=== PATIENT | male | born 1955 | race Caucasian/White ===

== ENCOUNTER → 2017-06-13 | Outpatient (CLI) | payer BC ==
--- NOTE | 2017-06-13 09:35 | RAD ---
Scrotal ultrasound History: Right scrotal pain. Comparison: None. Technique: Grayscale, color Doppler, and spectral Doppler imaging was performed of the scrotum and contents. Findings: Right testicle measures 2.3 x 3.3 x 4.1 cm. Right testicle is homogeneous. Right epididymis demonstrates small cyst versus spermatocele measuring 4 mm. Small complicated right hydrocele is seen. Left testicle measures 2.0 x 2.8 x 4.0 cm. Left testicle is homogeneous. Left epididymis demonstrates 3 mm cyst versus spermatocele. Both testicles demonstrate normal vascular flow upon Doppler interrogation and are without evidence of torsion. Impression: 1. No evidence of testicular mass or torsion. 2. Small bilateral epididymal cysts versus spermatoceles. 3. Small complicated right hydrocele. Electronically signed by: Troy Mccartney MD (06/13/2017 9:32 AM) [place] [id number]
--- NOTE | 2017-06-13 09:59 | RAD ---
PQRS Compliance Statement: One or more of the following individualized dose reduction techniques were utilized for this examination: 1. Automated exposure control 2. Adjustment of the mA and/or kV according to patient size 3. Use of iterative reconstruction technique CT chest without contrast June 13, 2017 INDICATION: Lung nodule. COMPARISON: CT abdomen/pelvis June 06, 2017. TECHNIQUE: Multiple axial CT images of the chest were obtained with intravenous contrast. Coronal and sagittal reformats provided. FINDINGS: The thyroid gland is normal in appearance. Lymph nodes within the axilla demonstrate normal fatty mimi. No morphologically abnormal lymph nodes are visualized in the axillary regions. There is a prevascular lymph node which measures 5 mm by short axis. Calcified AP window lymph node is noted. No pathologically enlarged mediastinal or hilar lymph nodes are identified. Heart size is within normal limits. No significant pericardial effusion is identified. There is advanced three-vessel coronary artery vascular calcification. Tracheobronchial calcification is present. There is mild centrilobular pulmonary emphysema. There is mild bronchial wall thickening compatible with bronchitis. There is bibasilar subsegmental atelectasis. There are numerous centrilobular micronodules measuring up to 4 mm (series 5, image 119) within the left upper lobe. There is a 7 mm calcified granuloma in the inferior lingula. No pulmonary vascular congestion or pneumothorax. There are no pleural effusions. Visualized portions of the liver, spleen, pancreas and adrenal glands are normal. No suspicious osseous lesions are identified. IMPRESSION: Centrilobular noncalcified pulmonary micronodules are noted throughout the lungs measuring up to 4 mm. This pattern is nonspecific. Recommend correlation with any history of tobacco exposure as findings may be seen in the setting of respiratory bronchiolitis interstitial lung disease. Alternatively, an infectious/inflammatory bronchiolitis may have similar appearance. Atypical infectious etiology is a consideration as is granulomatous disease. Electronically signed by: Sandi Decker MD (06/13/2017 9:56 AM) [id number]
== END | disposition home or self-care (01) ==
LOC: US 08:22
PROVIDERS: ATTEND Nurse Practitioner Adult Health
DX: J43.2 Centrilobular emphysema (principal); N43.3 Hydrocele, unspecified; R91.8 Other nonspecific abnormal finding of lung field
CPT/HCPCS: 71250; 76870